=== PATIENT | male | born 1995 | race Two or more races ===

== ENCOUNTER 2021-10-25 18:14 | Emergency (ER) | payer SELFPAY ==
[~2021-10-25] VITALS: Ht 177.8 cm; Wt 95.3 kg
[2021-10-25 18:26] VITALS: BP 158/84
[2021-10-25] MEDS ORDERED: ALBU108A5 IN (19:31)
== END 2021-10-25 21:06 | disposition left against medical advice (07) ==
LOC: ER 18:16
DX: J18.9 Pneumonia, unspecified organism (principal); F17.290 Nicotine dependence, other tobacco product, uncomplicated
CPT/HCPCS: 71046